=== PATIENT | female | born 1960 | race Hispanic/Latino ===

== ENCOUNTER 2022-10-16 07:32 | Day surgery (SDC) | payer OTHER, SELFPAY ==
[2022-09-23 11:27] VITALS: BMI 35.6
[2022-09-30 09:11] VITALS: BMI 34.8
--- NOTE | 2022-10-15 12:34 | P.PNAN_ITS ---
Anes - Initial Pre Proc Eval Procedure: Operation Date: 10/16/22 09:30 Proposed Procedures p Screening Colonoscopy - Sree Wren MD Date/Time: 10/15/22 12:34 Surgeon: Sree Wren MD Pre Op Diagnosis: Neoplasm Screening Patient Data Age: 62 Gender: F Height: 1.65 m Weight: 95 kg Allergies Allergy/AdvReac Type Severity Reaction Status Date / Time No Known Allergies Allergy Mild Verified 10/16/22 08:04 Home Medications Medication Instructions Recorded Confirmed Type amlodipine 10 mg tablet 10 mg PO DAILY 09/30/22 10/16/22 History atorvastatin 10 mg tablet 10 mg PO DAILY 09/30/22 10/16/22 History carvedilol 25 mg tablet 25 mg PO DAILY 09/30/22 10/16/22 History clonidine HCl 0.3 mg tablet 0.3 mg PO DAILY 09/30/22 10/16/22 History docusate sodium 100 mg capsule 100 mg PO BID 09/30/22 10/16/22 History ergocalciferol (vitamin D2) 1,250 1,250 mcg PO DAILY 09/30/22 10/16/22 History mcg (50,000 unit) capsule (Vitamin D2) furosemide 40 mg tablet 40 mg PO DAILY 09/30/22 10/16/22 History levothyroxine 100 mcg tablet 100 mcg PO DAILY 09/30/22 10/16/22 History lisinopril 40 mg tablet 40 mg PO DAILY 09/30/22 10/16/22 History metformin 500 mg tablet,extended 500 mg PO DAILY 09/30/22 10/16/22 History release 24 hr potassium chloride 10 mEq 10 meq PO DAILY 09/30/22 10/16/22 History tablet,extended release venlafaxine 37.5 mg 37.5 mg PO DAILY 09/30/22 10/16/22 History capsule,extended release 24 hr Patient hx anesthesia problems: none Family hx anesthesia problems: none Results Review: All pre-operative results and documents have been reviewed as part of the pre- operative evaluation. [facility] Past Medical History Medical History (Updated 10/16/22 @ 08:43 by Sree Wren MD) Colon cancer screening Diabetes type 2, controlled Hyperlipidemia Hypertension Hypothyroidism Surgical History Surgical History (Updated 10/15/22 @ 12:35 by Gm Rao DO) History of tonsillectomy Social History Social History Additional smoking assessment comments: Pt states smoked for about 2 years when was a teenager and not since Substance use: never Living arrangements: with family Spiritual care concerns: No Anes - Eval Final PreProcedure Day of Procedure 10/15/22 12:34 Patient weight: obese Heart: regular rate and rhythm Lungs: clear to auscultation Airway: Mallampati scale class II Neurological: alert and oriented Last oral intake: >/= 8 hours ASA classification: III Emergent: no Anesthetic plan: proceed Anesthesia type and monitoring: general GIVS and standard monitoring Results Review: All pre-operative results and documents have been reviewed as part of the pre- operative evaluation. Informed Consent: The patient's anesthetic plan and its attendant risks and benefits were discussed with the patient/family/POA. Questions were solicited and answers provided to the satisfaction of the patient/family/POA.
[2022-10-16 08:08] VITALS: BP 168/95; PULSE 72; RESP 18; TEMP 36.6; O2SAT 100
[2022-10-16] MEDS: LACTATED RINGERS 1,000 ML 150 ML IV CONT (08:29)
--- NOTE | 2022-10-16 08:43 | PM.HPGS ---
History of Present Illness History of Present Illness Consent: Risks, benefits, and alternatives have been discussed and questions answered. Patient agrees to proceed with procedure. Chief complaint: Neoplasm Screening Narrative: Raiza Macdonald is a 62 year old female here for first screening colonoscopy Review of Systems Constitutional: Constitutional: Denies headache(s) and Denies weakness Eyes: Eyes: Denies blurry vision ENT: Reports Normal hearing present, Denies headache(s) and Denies neck pain Cardiovascular: Cardiovascular: Denies chest pain and Denies dyspnea Respiratory: Respiratory: Denies dyspnea Gastrointestinal: Gastrointestinal: Reports no additional gastrointestinal complaints Genitourinary: Genitourinary: Denies dysuria Musculoskeletal: Musculoskeletal: Denies neck pain Integumentary/Breasts: Skin/Breast: Denies dry skin Neurologic: Reports Normal hearing present, Denies headache(s) and Denies weakness Psychiatric: Psychiatric: Denies anxiety Endocrine: Endocrine: Denies change in body appearance Hematologic/Lymphatic: Hematologic/Lymphatic: Denies easy bleeding Allergic/Immunologic: Allergic/Immunologic: Denies urticaria PMF Past Medical History Medical History (Updated 10/16/22 @ 08:43 by Sree Wren MD) Colon cancer screening Diabetes type 2, controlled Hyperlipidemia Hypertension Hypothyroidism Surgical History Surgical History (Updated 10/15/22 @ 12:35 by Gm Rao DO) History of tonsillectomy Social History Social History Additional smoking assessment comments: Pt states smoked for about 2 years when was a teenager and not since Substance use: never Living arrangements: with family Spiritual care concerns: No Meds Home Medications and Allergies Home Medications Medication Instructions Recorded Confirmed Type amlodipine 10 mg tablet 10 mg PO DAILY 09/30/22 10/16/22 History atorvastatin 10 mg tablet 10 mg PO DAILY 09/30/22 10/16/22 History carvedilol 25 mg tablet 25 mg PO DAILY 09/30/22 10/16/22 History clonidine HCl 0.3 mg tablet 0.3 mg PO DAILY 09/30/22 10/16/22 History docusate sodium 100 mg capsule 100 mg PO BID 09/30/22 10/16/22 History ergocalciferol (vitamin D2) 1,250 1,250 mcg PO DAILY 09/30/22 10/16/22 History mcg (50,000 unit) capsule (Vitamin D2) furosemide 40 mg tablet 40 mg PO DAILY 09/30/22 10/16/22 History levothyroxine 100 mcg tablet 100 mcg PO DAILY 09/30/22 10/16/22 History lisinopril 40 mg tablet 40 mg PO DAILY 09/30/22 10/16/22 History metformin 500 mg tablet,extended 500 mg PO DAILY 09/30/22 10/16/22 History release 24 hr potassium chloride 10 mEq 10 meq PO DAILY 09/30/22 10/16/22 History tablet,extended release venlafaxine 37.5 mg 37.5 mg PO DAILY 09/30/22 10/16/22 History capsule,extended release 24 hr Allergies Allergy/AdvReac Type Severity Reaction Status Date / Time No Known Allergies Allergy Mild Verified 10/16/22 08:04 Vital Signs Vital Signs - 24 hr 10/16/22 08:08 Temperature 97.8 F Pulse Rate 72 Respiratory Rate 18 Blood Pressure 168/95 H Pulse Oximetry 100 Oxygen Delivery Room Air Exam Const: General: comfortable and no acute distress HENMT: Face/Nose/Sinus: Normal nares present Eyes: General: appearance normal, both eyes and all related structures Neck: Neck: no JVD Resp: Auscultation: clear to auscultation bilaterally Cardio: Rate: regular rate Rhythm: regular rhythm GI: Inspection: non-distended GI Palp: Yes Soft to palpation Skin: General skin exam: normal color Neuro: General: gait normal Speech: normal speech Extrem: General: normal to inspection Psych: Mental Status: mental status grossly normal Assessment and Plan Assessment and plan (1) Colon cancer screening: Code(s): Z12.11 - Encounter for screening for malignant neoplasm of colon Status: Acute Assessment and Plan: colonoscopy
[2022-10-16 09:02] VITALS: BP 90/55; PULSE 71; RESP 16; O2SAT 100
[2022-10-16 09:12] VITALS: BP 109/77; PULSE 72; RESP 18; O2SAT 99
[2022-10-16 09:20] LABS: Glucose Point of Care 118 mg/dl (65-105)
[2022-10-16 09:22] VITALS: BP 115/79; PULSE 66; RESP 20; O2SAT 100
--- NOTE | 2022-10-16 10:06 | WPDANESPN ---
Anes - Prog Note Post-Op Date/Time: 10/16/22 10:06 Cardiovascular status: normal Respiratory status: normal Airway patency: baseline Mental status: baseline Post-Op hydration status: normal Vital Signs: Last Vital Signs Temp 36.6 C 10/16/22 08:08 Pulse 66 10/16/22 09:22 Resp 20 10/16/22 09:22 BP 115/79 10/16/22 09:22 Pulse Ox 100 10/16/22 09:22 O2 Del Method Room Air 10/16/22 09:22 Pain Score (VAS): 0 I/O: Intake & Output 10/15/22 10/16/22 10/16/22 23:59 07:59 15:59 Intake Total 840 Balance 840 10/16/22 08:26 POC Capillary Glucose 118 H Post-procedural complaints: none Patient Feedback: Patient satisfied with anesthetic care. Other Findings: Patient vital signs back to baseline. Patient denies nausea and vomiting. Patient's pain under control. Patient OK for discharge.
== END 2022-10-16 09:45 | disposition home or self-care (01) ==
PROVIDERS: Visit Provider Internal Medicine Gastroenterology
PROC: 0DJD8ZZ Inspection of Lower Intestinal Tract, Via Natural or Artificial Opening Endoscopic (ICD-10-PCS; CPT 45378; principal; 2022-10-16 09:30)
DX: Z12.11 Encounter for screening for malignant neoplasm of colon (principal)
CPT/HCPCS: 45378